=== PATIENT | male | born 1995 | race Caucasian/White ===

== ENCOUNTER 2024-10-24 03:12 | Emergency (ER) | payer SELFPAY ==
[2024-10-24 03:15] VITALS: BP 135/90
--- NOTE | 2024-10-24 05:18 | ED.GENMED ---
History of Present Illness
General
Chief Complaint: Facial Problem
Source: patient
Exam Limitations: none
Time Seen by Provider: 10/24/24 05:08
Nursing documentation reviewed up to this point in time: agreed with
History of Present Illness
History of Present Illness:
This is a 29-year-old gentleman who has no significant past medical history. He complains of pain, pressure left maxillary region that began 2 days ago, persistent and now radiating to his left ear as well as some mild discomfort around his left
eye. He has noted low-grade fever sporadically more so in the evening hours. He does admit to moderate nasal congestion but no rhinorrhea. He has had mild sore throat but able to swallow liquids well. He has had poor appetite for solids. He
denies headache. No facial swelling. His son has had similar URI symptoms a few days ago.
Thus far he has had no relief with [id number] decongestants, cough/cold medications.
No history of similar episodes in the past.
Past History
Past History
ED Past Medical History: None
ED Past Surgical History: None
Social History
Tobacco: Smoker
Drug: Marijuana
Personal:
Living: with family
Employment: Employed
Family History
Family History: Other (Noncontributory)
Phy Exam
Physical Exam
Physical Exam:
GENERAL: 29-year-old male appears his stated age, awake and alert, pleasant, appears in no acute distress. Afebrile. Mild nasal, stuffy voice is noted.
EYE: pupils equal and reactive. Extraocular muscles intact. Anicteric. There is no periorbital edema nor erythema.
NECK: Supple, nontender, no meningismus, no significant adenopathy.
ENT: posterior pharynx is clear, oral mucosa is moist. TM clear b/l, nares have mildly boggy turbinates with scant mucopus within the left nasal passage. Moderate tenderness to the left maxillary sinus without soft tissue swelling nor erythema.
CARDIAC: Regular rate and rhythm. no murmur.
LUNGS: Clear breath sounds bilaterally, no acute respiratory distress, no wheezes/rales/rhonchi
ABDOMEN: Soft, nondistended, without focal tenderness
NEUROLOGICAL: Alert and oriented x3, no focal neuro deficits. Gait is montelongo and steady.
SKIN: Warm and dry, normal color, skin intact. No rash.
MUSCULOSKELETAL: No C/C/E. peripheral pulses are full and equal b/l. No palpable tenderness.
PSYCH: Normal and appropriate interaction.
Course
Orders/Labs/Results
Orders:
Orders
10/24/24 05:17
Doxycycline [Vibramycin] 100 mg PO NOW STA
Prednisone [Deltasone] 50 mg PO NOW STA
Vital Signs
Initial and Last Documented VS:
Initial Vital Signs
Temp Pulse Resp BP Pulse Ox
98.7 F 112 18 135/90 100
10/24/24 03:15 10/24/24 03:15 10/24/24 03:15 10/24/24 03:15 10/24/24 03:15
Last Documented Vital Signs
Temp Pulse Resp BP Pulse Ox
98.7 F 112 18 135/90 100
10/24/24 03:15 10/24/24 03:15 10/24/24 03:15 10/24/24 03:15 10/24/24 03:15
MDM/Problems Addressed
Differential Diagnosis Includes:
29-year-old healthy male with no history of immunocompromise presents with 2-day history of left maxillary sinus pressure and pain.
Exam is overall benign, there is moderate tenderness over left maxillary sinus but no facial edema nor erythema. No periorbital edema nor erythema. Mild mucopus within the left nasal passage concerning for bacterial sinusitis.
Will initiate a course of doxycycline for acute bacterial sinusitis and will add a short course of prednisone.
Recommend Tylenol as needed for pain, humidification versus saline nasal spray, elevate head of bed at nighttime.
Follow-up with PCP for recheck.
*Pulse Oximetry
Patient hypoxic: no
*Critical Care Note
Total Time (30-74mins, 75-104mins- exclusive of procedures): Not Applicable
ED Attending Note
-
Portions of this chart may have been created with voice recognition software.� Occasional wrong word or��sound alike� substitutions may have occurred due to the inherent limitations of voice recognition software.
Discharge Plan
Departure
Patient Disposition: Home (Routine Discharge)
Date of Disposition: 10/24/24
Time of Disposition: 05:18
Patient with high blood pressure during this ER visit?: No
Condition: Good
Discharge Problem:
Acute bacterial sinusitis
Instructions: Sinusitis, Adult (DC)
Prescriptions:
New
doxycycline monohydrate 100 mg capsule
100 mg PO BID Qty: 14 1RF
prednisone 20 mg tablet
40 mg PO DAILY Qty: 8 0RF
Referrals:
NONE,* [Family Provider] - Call in 1-3 days for appt
Interventions
Interventions:
*Risk Screen - Suicide Last Done: 10/24/24 03:15
*General Assessment Last Done: 10/24/24 03:15
*Neglect/Abuse Screening Last Done: 10/24/24 03:15
*ED- Fall Risk Assessment Last Done: 10/24/24 05:03
ED- Neurological Assessment Last Done: 10/24/24 05:03
ED-Skin Assessment Last Done: 10/24/24 05:03
Discharge Date and Time
Print Language: CHINESE
[2024-10-24] MEDS: DELTASONE 50 MG PO (05:23)
[2024-10-24] MEDS: VIBRAMYCIN 100 MG PO (05:24)
== END 2024-10-24 05:28 | disposition home or self-care (01) ==
LOC: EMR 03:12
PROVIDERS: EMERGENCY PHYSICIAN Emergency Medicine
DX: J01.90 Acute sinusitis, unspecified (principal); F17.200 Nicotine dependence, unspecified, uncomplicated
CPT/HCPCS: 99282